=== PATIENT | female | born 1980 ===

== ENCOUNTER 2018-08-31 22:25 | Emergency (ER) | payer MEDICAID | END 2018-09-01 04:05 | disposition home or self-care (01) | LOC: ED 22:25 ==

== ENCOUNTER 2018-09-04 20:20 | Emergency (ER) | payer MEDICAID ==
[2018-09-04 20:34] VITALS: RESP 18; TEMP 98.1
[2018-09-04 20:36] VITALS: BMI 30.5
[2018-09-04] MEDS ORDERED: DiphenhydrAMINE 12.5 mg/5 ml LIQ UD (5 ml) PO STA (20:59)
--- NOTE | 2018-09-04 22:34 | ED PDOC ---
Arrival/HPI <Ezra Mirza - Last Filed: 09/04/18 22:51> - General Historian: Patient - History of Present Illness Narrative History of Present Illness (Text): 09/04/18 22:35 38yo female with pmhx of HTN who present with complaint of pruritic rash s/p taking Bactrim today. States she was given Bactrim here for UTI, which she started today for the first time and started having pruritic rash with swollen lips after taking it. He denies drooling, fever, neck pain, SOB, chest pain, any other inciting factors. <Amanda Beck A - Last Filed: 09/05/18 01:13> - General Chief Complaint: Allergic Reaction Time Seen by Provider: 09/04/18 20:31 Past Medical History - Provider Review Nursing Documentation Reviewed: Yes - Infectious Disease Hx of Infectious Diseases: None - Cardiac Hx Hypertension: Yes Hx Pacemaker: No - Pulmonary Hx Sleep Apnea: Yes (Prior to gastric sleeve) - Neurological Hx Migraine: Yes - HEENT Hx HEENT Disorder: No - Renal Hx Renal Disorder: No - Endocrine/Metabolic Hx Diabetes Mellitus Type 2: No - Hematological/Oncological Hx Anemia: Yes - Integumentary Hx Dermatological Disorder: No - Musculoskeletal/Rheumatological Hx Musculoskeletal Disorders: No Hx Falls: No - Gastrointestinal Hx Gastrointestinal Disorders: Yes Hx Gastroesophageal Reflux: Yes Other/Comment: gastric sleeve. esophagitis - Genitourinary/Gynecological Hx Genitourinary Disorders: No - Psychiatric Hx Depression: Yes Hx Substance Use: No - Surgical History Hx Tonsillectomy: Yes - Anesthesia Hx Anesthesia: Yes Hx Anesthesia Reactions: No Hx Malignant Hyperthermia: No - Suicidal Assessment Feels Threatened In Home Enviroment: No <DirashleyHappiness A - Last Filed: 09/05/18 01:13> Family/Social History - Physician Review Nursing Documentation Reviewed: Yes Family/Social History: Unknown Family HX Smoking Status: Light Smoker < 10 Cigarettes Daily Hx Alcohol Use: No Hx Substance Use: No <KiranHappiness A - Last Filed: 09/05/18 01:13> Allergies/Home Meds <Ezra Mirza - Last Filed: 09/04/18 22:51> <DirashleyHappiness A - Last Filed: 09/05/18 01:13> Allergies/Adverse Reactions: Allergies aspirin Allergy (Verified 05/07/18 17:06) RASH Penicillins Allergy (Verified 05/07/18 17:06) URTICARIA seasonal Allergy (Uncoded 05/07/18 17:06) SWELLING EYES TEARY Home Medications: Home Meds Medication Instructions Recorded Confirmed Enalapril Maleate [Vasotec] 2.5 mg PO BID 01/11/18 03/21/18 Review of Systems - Review of Systems Constitutional: Normal Eyes: Normal ENT: Normal Respiratory: Normal Cardiovascular: Normal Gastrointestinal: Normal Genitourinary Female: Normal Musculoskeletal: Normal Skin: Rash, Pruritis Neurological: Normal Endocrine: Normal Hemo/Lymphatic: Normal Psychiatric: Normal <Diru,Happiness A - Last Filed: 09/05/18 01:13> Physical Exam Vital Signs Temp Pulse Resp BP Pulse Ox 09/04/18 20:32 98.1 F 85 18 125/78 97 <Ezra Mirza - Last Filed: 09/04/18 22:51> Vital Signs Reviewed: Yes Vital Signs Temp Pulse Resp BP Pulse Ox 09/04/18 20:32 98.1 F 85 18 125/78 97 Temperature: Afebrile Blood Pressure: Normal Pulse: Regular Respiratory Rate: Normal Appearance: Positive for: Well-Appearing, Non-Toxic, Comfortable Pain Distress: None Mental Status: Positive for: Alert and Oriented X 3 - Systems Exam Head: Present: Atraumatic, Normocephalic Pupils: Present: PERRL Extroacular Muscles: Present: EOMI Conjunctiva: Present: Normal Mouth: Present: Moist Mucous Membranes Neck: Present: Normal Range of Motion Respiratory/Chest: Present: Clear to Auscultation, Good Air Exchange. No: Respiratory Distress, Accessory Muscle Use Cardiovascular: Present: Regular Rate and Rhythm, Normal S1, S2. No: Murmurs Abdomen: No: Tenderness, Distention, Peritoneal Signs Back: Present: Normal Inspection Upper Extremity: Present: Normal Inspection. No: Cyanosis, Edema Lower Extremity: Present: Normal Inspection. No: Edema Neurological: Present: GCS=15, CN II-XII Intact, Speech Normal Skin: Present: Warm, Dry, Rashes (Hives noted on neck and lower leg), Normal Color Psychiatric: Present: Alert, Oriented x 3, Normal Insight, Normal Concentration <Diru,Happiness A - Last Filed: 09/05/18 01:13> Medical Decision Making - Medication Orders Current Medication Orders: Discontinued Medications Diphenhydramine HCl (Benadryl) 25 mg PO STAT STA Stop: 09/04/18 21:00 Last Admin: 09/04/18 21:12 Dose: 25 mg Famotidine (Pepcid) 20 mg PO STAT STA Stop: 09/04/18 21:00 Last Admin: 09/04/18 21:14 Dose: 20 mg Prednisone (Prednisone Tab) 60 mg PO STAT ONE Stop: 09/04/18 21:00 Last Admin: 09/04/18 21:14 Dose: 60 mg <Ezra Mirza - Last Filed: 09/04/18 22:51> ED Course and Treatment: 09/05/18 01:11 Pt presented to ED for stated history. She was not in any distress. No stridor. Controlling her secretions. Prednisone Benadryl Pepcid On r evaluation her rash resolved. She was advised to stop Bactrim and Cipro rx was given. DC home with Benadryl and prednisone. Referred to her PMD. She verbalized understanding. - Medication Orders Current Medication Orders: Discontinued Medications Diphenhydramine HCl (Benadryl) 25 mg PO STAT STA Stop: 09/04/18 21:00 Last Admin: 09/04/18 21:12 Dose: 25 mg Famotidine (Pepcid) 20 mg PO STAT STA Stop: 09/04/18 21:00 Last Admin: 09/04/18 21:14 Dose: 20 mg Prednisone (Prednisone Tab) 60 mg PO STAT ONE Stop: 09/04/18 21:00 Last Admin: 09/04/18 21:14 Dose: 60 mg <Amanda Beck - Last Filed: 09/05/18 01:13> - PA / LOCATION ANALYST / Resident Statement / has reviewed & agrees with the documentation as recorded. <Ezra Mirza - Last Filed: 09/04/18 22:51> Disposition/Present on Arrival <Ezra Mirza - Last Filed: 09/04/18 22:51> - Present on Arrival Any Indicators Present on Arrival: No History of DVT/PE: No History of Uncontrolled Diabetes: No Urinary Catheter: No History of Decub. Ulcer: No History Surgical Site Infection Following: None - Disposition Have Diagnosis and Disposition been Completed?: Yes Disposition Time: 22:40 Patient Plan: Discharge <Amanda Beck - Last Filed: 09/05/18 01:13> - Disposition Diagnosis: Acute urinary tract infection, Allergic reaction Disposition: HOME/ ROUTINE Condition: STABLE Discharge Instructions (ExitCare): Urinary Tract Infections in Adults, Drug Allergy Additional Instructions: Follow up with your doctor Return to ED for any new or worsening symptoms Prescriptions: Ciprofloxacin HCl [Cipro] 500 mg PO BID #14 tablet DiphenhydrAMINE [Benadryl] 25 mg PO Q6 #20 cap predniSONE [Prednisone] 20 mg PO BID #8 tab Referrals: Bell Hernandez MD [Primary Care Provider] - Follow up with primary Forms: [employer] (Russian)
[2018-09-04 23:03] VITALS: BP 124/75; PULSE 84; O2SAT 100
== END 2018-09-04 23:03 | disposition home or self-care (01) ==
LOC: ED 20:20
DX: T78.40XA Allergy, unspecified, initial encounter (principal); X58.XXXA Exposure to other specified factors, initial encounter; N39.0 Urinary tract infection, site not specified

== ENCOUNTER 2018-09-12 20:07 | Emergency (ER) | payer MEDICAID | END 2018-09-12 23:08 | disposition home or self-care (01) | LOC: ED 20:07 ==